=== PATIENT | female | born 1990 | race Caucasian/White ===

== ENCOUNTER 2022-12-12 05:40 | Inpatient (IN) ==
--- NOTE | 2022-12-03 08:33 | Anesthesiology Consultation ---
Date of Service December 03, 2022 Assessment & Plan (1) Encounter for pre-operative examination: Chart Review Chart Review: data entry processor initiated -COVID screening: Per PAT nursing assessment on 12/02/22. No known COVID-19 posi tive contacts or current COVID-19 related symptoms. Travel screen negative. Patient vaccinated for Covid. At surgeon discretion if preop Covid testing being done. 03/15/15= Done under SAB at L3-4 with 1 attempt. Tolerated well. Per anesthesia progress note 03/15/15 - no major issues. "The patient did well, but is now having some pain over her abdomen as the spinal is wearing off. She is getting IV Toradol and Demerol." History Surgery Operation Date: 12/12/22 07:30 Proposed Procedures p Section (Delivery of Baby Through Abdominal Incision) - Chris Mooney MD s with Bilateral Tubal Ligation - Chris Mooney MD Height/Weight Height: 4 ft 10 in Weight: 68.039 kg Allergies Allergy/AdvReac Type Severity Reaction Status Date / Time bacitracin Allergy Intermediate RASH Verified 12/02/22 16:04 neomycin Allergy Intermediate RASH Verified 12/02/22 16:04 polymyxin B Allergy Intermediate RASH Verified 12/02/22 16:04 Medications Home Medications Medication Instructions Recorded Confirmed Last Taken prenat.vits,shayla,bqm-qjqo-oxkyi 1 tab PO QPM 05/09/22 12/02/22 Unknown famotidine 20 mg tablet (Pepcid) 20 mg PO BID 12/02/22 12/02/22 Unknown iron 1 tab PO QPM 12/02/22 12/02/22 Unknown Past Medical History Medical History Acid reflux History of anesthesia reaction "epidural did not work" -- 2014 [facility]. History of chicken pox IBS (irritable bowel syndrome) TMJ (temporomandibular joint disorder) Past Family History Family History Father Pancreatic cancer Diabetes Hypertension Mother Diabetes Osteoporosis Other No family history of adverse response to anesthesia Denies family history of Ovarian cancer Breast cancer Colorectal cancer Past Surgical History Surgical History S/P section x2 S/P wisdom tooth extraction Social History Smoking Status: Never smoker Do You Dip or Chew Tobacco: No Hx Alcohol Use: No Hx Substance Use: No substance use type: does not use
[~2022-12-12 05:40] MED LIST: SODIUM CHLORIDE 0.9% 250 ML IV PRN
[2022-12-12] MEDS ORDERED: LACTATED RINGER'S 1,000 ML IV SCH ×2 (05:45→09:15)
[2022-12-12] MEDS ORDERED: CITRIC ACID/SODIUM CITRATE 15 ML UDC PO SCH (06:00)
[2022-12-12] MEDS ORDERED: ceFAZolin 2000MG 2,000 MG/15 ML SYR IV SCH (06:00)
[2022-12-12 06:15] LABS: Basophils # (auto) 0.04 K/uL (0-0.2); Basophils % (auto) 0.4 %; Eosinophils # (auto) 0.02 K/uL (0-0.50); Eosinophils % (auto) 0.2 %; Hematocrit (blood only) 35.6 % (37.0-47.0); Hemoglobin 11.8 g/dl (12.0-16.0); Immature Granulocytes # (auto) 0.06 K/uL (0.01-0.20); Immature Granulocytes % (auto) 0.7 %; Lymphocytes # (auto) 2.52 K/uL (1.2-3.4); Lymphocytes % (auto) 27.5 %; Mean Corpuscular Hemoglobin 29.6 pg (25.0-34.0); Mean Corpuscular Hgb Conc 33.1 g/dL (32.0-36.0); Mean Corpuscular Volume 89.2 fL (80.0-100.0); Mean Platelet Volume 11.6 fL (9.4-12.4); Monocytes # (auto) 0.43 K/uL (0.11-0.59); Monocytes % (auto) 4.7 %; Neutrophils # (auto) 6.09 K/uL (1.40-6.50); Neutrophils % (auto) 66.5 %; Platelet Count 183 K/uL (130-400); RDW Coefficient of Variation 14.4 % (11.5-14.5); Red Blood Count 3.99 M/uL (4.20-5.40); White Blood Count 9.16 K/ul (4.8-10.8)
[2022-12-12] MEDS ORDERED: OXYTOCIN 10 UNITS/ML 10ML VIAL ONE (06:44)
[2022-12-12] MEDS ORDERED: MoRPHine SULFATE PF 1 MG/ML 10 ML AMP/VIAL ONE (06:45)
[2022-12-12] MEDS ORDERED: fentaNYL citrate PF 100 MCG/2 ML VIAL ONE ×4 (06:45→08:17)
[2022-12-12] MEDS ORDERED: diphenhydrAMINE 50 MG/ML VIAL IV PRN (07:05)
[2022-12-12] MEDS ORDERED: LACTATED RINGER'S 500 ML IV PRN (07:05)
[2022-12-12] MEDS ORDERED: MoRPHine SULFATE PF 1 MG/ML 10 ML AMP/VIAL INT SPINAL ONE (07:05)
[2022-12-12] MEDS ORDERED: NALBUPHINE HCL INJ 10 MG/ML AMP IV PRN (07:05)
[2022-12-12] MEDS ORDERED: NALOXONE HCL 0.4 MG/1 ML VIAL/CARP IV PRN (07:05)
[2022-12-12] MEDS ORDERED: NALOXONE HCL 0.08 MG in SYRINGE 1.8 ML IV PRN (07:05)
[2022-12-12] MEDS ORDERED: ePHEDrine sulfate 50 MG/ML AMP IV PRN (07:05)
[2022-12-12] MEDS ORDERED: NALOXONE HCL 1 MG in SODIUM CHLORIDE 0.9% 1000ML 1,000 ML IV PRN (07:05)
[2022-12-12] MEDS ORDERED: ONDANSETRON INJ 2 MG/ML 2 ML VIAL IV PRN (07:05)
[2022-12-12] MEDS ORDERED: SODIUM CHLORIDE 0.9% 1000ML 1,000 ML IV SCH (07:15)
[2022-12-12] MEDS ORDERED: DC INTRASPINAL MORPHINE SCH (07:15)
[2022-12-12] MEDS ORDERED: NO NARCOTICS OR SEDATIVES SCH (07:15)
--- NOTE | 2022-12-12 07:21 | History & Physical Report ---
Date of Service December 12, 2022 Assessment & Plan (1) Previous delivery affecting , antepartum: Plan: 32yo presents for scheduled repeat with history of x2. 1. Fetus: Cat 1 2. Delivery: Repeat LTCS x 2. Consents signed 3. Vitals: WNL Admission and Anticipated Discharge Date Admission Date: December 12, 2022 History of Present Illness Primary Care Provider: Ubaldo Montez 32yo presents for scheduled repeat with history of x2. complications: Previous x2 *desires repeat c/s and tubal C/S SCHEDULED FOR 12/12/[address] MERINO AND DR. ESQUIVEL ASSIST C/S WITH TUBAL RESCHEDULED TO 12/12/[address] POTTER AND DR. ESQUIVEL ASSIST Flu shot given 05/14/22 - AL Small Cystic Structure inferior to Kidney *MFM consult (08/28/22 @ [facility] – [place]MRI done, not seen. - Recommend follow up US at 34 weeks-->not seen. aga growth OB Labs: Blood Type O Positive 05/14/22 Antibody Screen NEGATIVE 05/14/22 Hemoglobin 12.1 g/dl (12.0-16.0) 09/29/22 Hematocrit 35.3 % (37.0-47.0) L 09/29/22 Mean Corpuscular Volume 88.3 fL (80.0-100.0) 05/14/22 Platelet Count 239 K/uL (130-400) 05/14/22 Rubella IgG Antibody Immune (Immune) 05/14/22 Rapid Plasma Reagin Nonreactive (Nonreactive) 05/14/22 Hepatitis B Surface Antigen. NON-REACTIVE (NON-REACTIVE) 05/14/22 Hepatitis C Antibody (EIA) NON-REACTIVE (NON-REACTIVE) 05/14/22 HIV (1&2) Ag and Ab Confirmation NON-REACTIVE (NON-REACTIVE) 05/14/22 Glucose 1 Hour 50 gm Load 117 mg/dl (70-130) 09/29/22 Maternal Serum Alpha Fetoprotein 45.8 ng/mL 07/09/22 OB Optional Labs: Chlamydia trachomatis RNA Not Detected (NotDetected) 05/14/22 Neisseria gonorrhoeae RNA Not Detected (NotDetected) 05/14/22 Alpha Fetoprotein Triple Screen SEE NOTE 07/09/22 Labs Reviewed: cf/sma-negative--mln cfdna-low risk--mln neg afp - sln Allergies Allergy/AdvReac Type Severity Reaction Status Date / Time bacitracin Allergy Intermediate RASH Verified 12/11/22 16:36 neomycin Allergy Intermediate RASH Verified 12/11/22 16:36 polymyxin B Allergy Intermediate RASH Verified 12/11/22 16:36 Home Medications Medication Instructions Recorded Confirmed Type prenat.vits,shayla,tno-lzia-nqwan 1 tab PO QPM 05/09/22 12/11/22 History famotidine 20 mg tablet (Pepcid) 20 mg PO BID 12/02/22 12/11/22 History iron 1 tab PO QPM 12/02/22 12/11/22 History Patient History Medical History Acid reflux History of anesthesia reaction "epidural did not work" -- 2014 [facility]. History of chicken pox IBS (irritable bowel syndrome) TMJ (temporomandibular joint disorder) Surgical History S/P section x2 S/P wisdom tooth extraction Family History Father Pancreatic cancer Diabetes Hypertension Mother Diabetes Osteoporosis Other No family history of adverse response to anesthesia Denies family history of Ovarian cancer Breast cancer Colorectal cancer Social History Smoking Status: Never smoker Second Hand Exposure: No; Do You Dip or Chew Tobacco: No; Tobacco Cessation Education Requested by Patient: No Hx Alcohol Use: No Hx Substance Use: No Preferred Language: Maori Communication Ability: Effective Coin Machine Collector Required: No Beliefs That Will Affect Care: None marital status: marital status details: James Rojelio (33) [phone] Current Living Situation: Spouse and Family Current Living Situation Comment: lives with spouse, 2 children, cats- spouse/son changing litter current occupational status: employed current occupation: student teaching Other Information That Helps Us Care for You: No Feels Safe at Home: Yes Safety Concerns: Feels Safe At This Time Assistive Devices: Contacts Physical Exam Respiratory: normal respiratory effort; no respiratory distress, no labored breathing and no retractions Cardiovascular: Rate/Rhythm: regular rate and regular rhythm Gastrointestinal (Abdomen): Inspection/Auscultation: abdomen normal to inspection; abdomen not distended Genitourinary: OB Exam Monitor Tracing: + external FHT monitor used, + category I and + normal FHT variability; no early decelerations present, no late decelerations present and no variable decelerations Results & Data Vital Signs (Past 12 Hours) Vital Signs Temp Pulse Resp BP 12/12/22 07:00 20 12/12/22 07:00 37.1 C 20 12/12/22 07:02 85 125/81 12/12/22 06:00 87 123/72 Coding Level of Care Code None Diagnoses Previous delivery affecting , antepartum O34.219
[2022-12-12] MEDS ORDERED: PHENYLEPHRINE 100MCG/ML 5ML SYR ONE (07:48)
[2022-12-12] MEDS ORDERED: KETAMINE 50 MG/5 ML SYRINGE ONE (08:03)
--- NOTE | 2022-12-12 08:50 | Post Operative Brief Note ---
PG Immediate Post Op with CF Date of Surgery December 12, 2022 Pre & Post Diagnosis Operation Date: 12/12/22 07:30 Pre-Op Diagnosis: Term Repeat Post-Op Diagnosis: same I identified the patient and participated in the time-out.: Yes Procedure Operation Date: 12/12/22 07:30 Actual Procedures p Section in LD for live female infant at 0800 - Chris Mooney MD Surgeon Chris Mooney MD Commercial Litigation Associate None Estimated Blood Loss 500 Findings Consistent with Post-Op Diagnosis Specimens Specimen Description: placenta-hold cord blood Drains Queen Catheter OB Procedure charges OB Charges [id number] [id number] Add on Tubal for C/S
[2022-12-12] MEDS ORDERED: BENZOCAINE 20% AER SPR 82.5 GM CAN EXT PRN (09:01)
[2022-12-12] MEDS ORDERED: DIPHTHERIA/TETANUS/PERTUSSIS 0.5mL SYR/VIAL (Age 7+yrs) IM ONE (09:01)
[2022-12-12] MEDS: KETOROLAC 30 MG/ML VIAL IV PRN ×3 (09:01→23:13)
[2022-12-12] MEDS ORDERED: HYDROCORTISONE ACETATE 25 MG SUPP PR PRN (09:01)
[2022-12-12] MEDS ORDERED: SENNA 8.6 MG TAB PO PRN (09:01)
[2022-12-12] MEDS ORDERED: MAGNESIUM HYDROXIDE SUSP 30 ML UDC PO PRN (09:01)
[2022-12-12] MEDS ORDERED: IBUPROFEN 600 MG TAB PO PRN (09:01)
[2022-12-12] MEDS: OXYTOCIN 20 UNITS in LACTATED RINGER'S 1,000 ML IV SCH ×2 (10:32→19:16)
[2022-12-12] MEDS: HYDROmorphone INJ 0.5 MG/0.5 ML SYR IV PRN ×2 (10:39→18:40)
--- NOTE | 2022-12-12 10:49 | Anesthesiology Progress Note ---
Date of Service December 12, 2022 Anesthesia Post Procedure Vital Signs Vital Signs: Temp Pulse Resp BP Pulse Ox 12/12/22 09:00 36.7 C 20 12/12/22 10:44 76 132/66 97 12/12/22 10:39 76 97 12/12/22 10:34 97 12/12/22 10:34 75 12/12/22 10:34 73 129/62 12/12/22 10:29 78 98 12/12/22 10:24 97 12/12/22 10:24 76 12/12/22 10:24 75 138/66 12/12/22 10:19 76 96 12/12/22 10:14 89 147/65 H 97 12/12/22 10:09 75 96 12/12/22 10:04 73 154/79 H 96 12/12/22 09:59 82 97 12/12/22 09:54 96 12/12/22 09:54 82 12/12/22 09:54 74 140/65 12/12/22 09:51 77 148/72 H 12/12/22 09:49 81 95 12/12/22 09:44 94 H 97 12/12/22 09:39 78 98 12/12/22 09:34 79 150/78 H 98 12/12/22 09:29 84 97 12/12/22 09:24 81 146/78 H 97 12/12/22 09:19 79 98 12/12/22 09:14 97 12/12/22 09:14 84 12/12/22 09:14 78 142/87 H 12/12/22 09:09 94 H 99 12/12/22 09:06 72 128/61 12/12/22 09:04 84 98 12/12/22 08:59 84 99 12/12/22 08:54 97 12/12/22 08:54 84 12/12/22 08:54 83 144/78 H 12/12/22 07:00 20 12/12/22 07:00 37.1 C 20 12/12/22 07:02 85 125/81 12/12/22 06:00 87 123/72 Pain Intensity Bilateral Abdomen: Pain Intensity: 0 Transfer of Care Handoff Completed per policy Notes Mental Status: alert / awake / arousable and participated in evaluation Patient Amnestic to Procedure: Yes Nausea / Vomiting: adequately controlled Pain: adequately controlled Airway Patency, RR, SpO2: stable & adequate BP & HR: stable & adequate Hydration State: stable & adequate Anesthetic Complications: no major complications apparent and Pt Satisfied with anesthetic care
[2022-12-12] MEDS: SIMETHICONE 80 MG CHEW PO SCH ×3 (14:16→21:08)
--- NOTE | 2022-12-12 14:55 | Operative Report (OR) ---
DATE OF SERVICE: 12/12/2022 PROCEDURE: Repeat low transverse section with bilateral tubal ligation. SURGEON: Chris Mooney MD. STUDIO COUCH FRAME BUILDER: Wood Posey MD. PREOPERATIVE DIAGNOSES: 1. Term at 39 weeks 0 days gestational age. 2. History of prior section x2. POSTOPERATIVE DIAGNOSES: 1. Term at 39 weeks 0 days gestational age. 2. History of prior section x2. 3. Status post procedure. ESTIMATED BLOOD LOSS: 500 mL DRAINS: Queen catheter. FLUIDS: Continuous lactated Ringer. URINE OUTPUT: Per Queen catheter. COMPLICATIONS: None. FINDINGS: Viable with weight and Apgars pending. Normal-appearing uterus, ovaries and fallo pian tubes. Fallopian tubes removed via complete salpingectomy. DESCRIPTION OF PROCEDURE: The patient was taken to the operating room after consents were ensured. Upon presentation, she was properly identified. Spinal anesthesia was obtained without difficulty. The patient was then prepped and draped in normal sterile fashion. Preprocedural timeout was perform ed. A Pfannenstiel incision was then made with a knife at the prior location. This was ca rried down to underlying fascia with the Bovie. The fascia was nicked at the midline with a knife an d extended laterally with pickups and Dobson scissors. The superior aspect of the fascia was grasped w ith Kochers x2, elevated off the underlying rectus muscles with blunt dissection and Dobson scissors. Inferior aspect of the fascia was grasped with Kochers x2, elevated off the underlying rectus muscles using blunt dissection. The midline was then entered bluntly, placed on stretch to provide adequate room for delivery. The bladder blade was inserted. Bladder flap was created per standard fashion. A low transverse uterine incision was then made with a knife. The uterine cavity and amniotic cavity entered bluntly, placed on stretch to provide adequate room for delivery. Head of the deliv ered through the hysterotomy without difficulty, body and shoulders quickly followed. was no haseeb to be vigorous soon after delivery and a 30-second delayed cord clamping was initiated. Cord was then double clamped and cut. taken to the waiting nursery staff. Cord blood was obtained. Attention was then turned to delivery of the placenta, which was delivered intact, 3-vessel cord, wi th gentle cord traction and uterine massage. The uterus was then exteriorized, wrapped in a wet lap and several passes were made, removing any remaining membranes with a dry lap. The hysterotomy was t hen reapproximated with 0 Vicryl continuous running locked stitch. The tubal ligation was then perfo rmed with complete salpingectomy using the handheld LigaSure device. Hemostasis was noted at the com pletion of the tubal ligation. The hysterotomy was then reinspected and noted to have mild bleeding, which was then cauterized and p ressure was applied and hemostasis was noted. The uterus was then returned to the maternal abdomen a nd Letty was placed over all vascular pedicles and raw edges of the bladder flap due to some continu ed mild oozing. The hemostasis was then noted. The muscles, subcutaneous and fascial layers were in spected to be hemostatic. The fascia was reapproximated with 0 Vicryl in continuous running stitch s tarting at each lateral apices and continued to the midline. The subcutaneous layers were reapproxim ated with 2-0 plain and continuous running stitch in 2 layers. The skin was reapproximated with 3-0 V icryl with a subcuticular stitch. Needle, sponge, and instrument counts were correct at the completi on of the case. Both mother and stable in the immediate post-delivery period. Job ID: [id number]
[2022-12-12] MEDS: DOCUSATE SODIUM 100 MG CAP PO SCH (21:08)
[2022-12-12] MEDS ORDERED: CALCIUM CARBONATE 500 MG CHEWABLE TAB PO PRN (23:03)
[2022-12-12] MEDS ORDERED: CALCIUM CARBONATE 500 MG CHEWABLE TAB ONE (23:11)
[2022-12-13] MEDS: HYDROmorphone INJ 0.5 MG/0.5 ML SYR IV PRN (00:47)
[2022-12-13] MEDS ORDERED: ONDANSETRON INJ 2 MG/ML 2 ML VIAL IV PRN (01:06)
[2022-12-13] MEDS ORDERED: PROMETHAZINE HCL 25 MG in SODIUM CHLORIDE 0.9% 50 ML IV PRN (01:06)
[2022-12-13] MEDS ORDERED: diphenhydrAMINE Capsule 25 MG CAP PO PRN (01:06)
[2022-12-13] MEDS ORDERED: diphenhydrAMINE 50 MG/ML VIAL IV PRN (01:06)
[2022-12-13] MEDS: KETOROLAC 30 MG/ML VIAL IV PRN ×2 (06:30→15:39)
--- NOTE | 2022-12-13 06:53 | Obstetrical Progress Note ---
Date of Service <Erik RiveraDO - Last Filed: 12/13/22 07:54> December 13, 2022 Assessment & Plan <Erik RiveraDO - Last Filed: 12/13/22 07:54> (1) S/P section: - Feels well today. N/V with clear liquids, about to urinate but has not had a BM or passed gas, ambulating well. - Pain well controlled with pain meds. - Routine care -- OOB, ambulation, diet progression as tolerated - After discharge will have 6 week follow-up with Dr. Mooney. (2) Previous delivery affecting , antepartum: - as above (3) Acid reflux: - Will add on home Pepcid 20mg BID. Day #:: 1 <Chris Mooney MD - Last Filed: 12/13/22 08:20> (1) S/P section: (2) Previous delivery affecting , antepartum: (3) Acid reflux: Plan Patient seen with resident and agree with the above findings and plan. patient is reported Nausea without vomiting overnight. Also reporting pain in left upper abdomen and shoulder. Abdomen mildly distended. recommended light p.o. intake until she starts passing gas. Recommended frequent ambulation. Zofran ordered p.r.n. Subjective <Erik PenaDona GenetDO mamta - Last Filed: 12/13/22 07:54> Ambulation: ambulating normally Voiding: no voiding problems Passing Gas:: No Diet Tolerance:: nausea/vomiting Lochia:: Small Feeding Type:: breast feeding Current Pain Level(1-10): 7 Had some N/V with clear liquids Review of Systems Denies fever, chills, sweats Denies shortness of breath, difficulty breathing, chest pain, palpitations, chest pressure. Denies breast pain. Denies dysuria. Denies headache or changes in vision. Physical Exam <Erik PenaDona GenetDO mamta - Last Filed: 12/13/22 07:54> General: Alert, oriented. No acute distress. Cardiac: Regular rate and rhythm, no murmurs/rubs/gallops. Respiratory: Clear to auscultation bilaterally a/p, no wheezes/rales/rhonchi. No increased work of breathing. Symmetrical chest rise. No respiratory distress. Abdomen: Soft, nontender, nondistended. Bowel sounds present. Uterus: Uterine fundus firm, palpable 1 cm below umbilicus. surgical wound healing well Lower Extremities: No lower extremity edema or swelling. No deep calf pain. Shelley's negative bilaterally. <Chris Mooney MD - Last Filed: 12/13/22 08:20> General: Alert, oriented. No acute distress. Cardiac: Regular rate and rhythm, no murmurs/rubs/gallops. Respiratory: Clear to auscultation bilaterally a/p, no wheezes/rales/rhonchi. No increased work of breathing. Symmetrical chest rise. No respiratory distress. Abdomen: Soft, nontender, mildly distended. Bowel sounds present. Uterus: Uterine fundus firm, palpable 1 cm below umbilicus. surgical wound healing well Lower Extremities: No lower extremity edema or swelling. No deep calf pain. Shelley's negative bilaterally. Results & Data <Erik Rivera DO - Last Filed: 12/13/22 07:54> Vital Signs (Past 12 Hours) Vital Signs Temp Pulse Resp BP Pulse Ox O2 Del Method 12/13/22 03:15 36.9 C 76 18 123/79 12/12/22 23:00 18 96 12/12/22 23:15 36.4 C L 82 18 127/72 12/12/22 22:01 18 94 12/12/22 21:00 18 95 12/12/22 20:00 18 96 12/12/22 19:40 36.6 C 69 18 130/82 96 Room Air 12/12/22 19:00 95 H Resident Activity Tracking <Erik Rivera DO - Last Filed: 12/13/22 07:54> Resident Involvement: Resident Care Provided Care Provided: OB Delivery
[2022-12-13 07:58] LABS: Basophils # (auto) 0.02 K/uL (0-0.2); Basophils % (auto) 0.2 %; Eosinophils # (auto) 0.01 K/uL (0-0.50); Eosinophils % (auto) 0.1 %; Hematocrit (blood only) 30.9 % (37.0-47.0); Hemoglobin 10.1 g/dl (12.0-16.0); Immature Granulocytes # (auto) 0.06 K/uL (0.01-0.20); Immature Granulocytes % (auto) 0.6 %; Lymphocytes # (auto) 1.48 K/uL (1.2-3.4); Lymphocytes % (auto) 15.6 %; Mean Corpuscular Hemoglobin 29.4 pg (25.0-34.0); Mean Corpuscular Hgb Conc 32.7 g/dL (32.0-36.0); Mean Corpuscular Volume 90.1 fL (80.0-100.0); Mean Platelet Volume 12.2 fL (9.4-12.4); Monocytes # (auto) 0.34 K/uL (0.11-0.59); Monocytes % (auto) 3.6 %; Neutrophils # (auto) 7.59 K/uL (1.40-6.50); Neutrophils % (auto) 79.9 %; Platelet Count 151 K/uL (130-400); RDW Coefficient of Variation 14.4 % (11.5-14.5); RDW Standard Deviation 46.3 fL (36.4-46.3); Red Blood Count 3.43 M/uL (4.20-5.40)
[2022-12-13] MEDS: FAMOTIDINE 20 MG TAB PO SCH ×2 (08:23→21:11)
[2022-12-13] MEDS: SIMETHICONE 80 MG CHEW PO SCH ×4 (08:24→21:08)
[2022-12-13] MEDS: PRENATAL VITAMIN 1 TAB PO SCH (11:18)
[2022-12-13] MEDS: FERROUS SULFATE 325 MG TAB PO SCH (11:18)
[2022-12-13] MEDS: DOCUSATE SODIUM 100 MG CAP PO SCH ×2 (11:18→21:08)
[2022-12-13] MEDS ORDERED: bisacodyL 5 MG TABEC PO SCH (20:00)
[2022-12-13] MEDS: oxyCODONE/ACETAMINOPHEN 5mg/325mg TAB PO PRN (21:41)
[2022-12-14] MEDS: oxyCODONE/ACETAMINOPHEN 5mg/325mg TAB PO PRN ×3 (01:44→10:28)
[2022-12-14 06:47] LABS: Hemoglobin 9.2 g/dl (12.0-16.0)
[2022-12-14] MEDS: FERROUS SULFATE 325 MG TAB PO SCH (08:22)
[2022-12-14] MEDS: DOCUSATE SODIUM 100 MG CAP PO SCH (08:22)
[2022-12-14] MEDS: SIMETHICONE 80 MG CHEW PO SCH (08:23)
[2022-12-14] MEDS: PRENATAL VITAMIN 1 TAB PO SCH (08:23)
[2022-12-14] MEDS ORDERED: bisacodyL 10 MG SUPP PR PRN (09:02)
[2022-12-14] MEDS: FAMOTIDINE 20 MG TAB PO SCH (09:37)
--- NOTE | 2022-12-14 10:09 | Obstetrical Progress Note ---
Date of Service December 14, 2022 Assessment & Plan (1) Encounter for care after hospital delivery: Plan doing well, desires dc home, instructions reviewed. f/u 6 wk pp check. needs breast pump script. checked on papdmp, no issues identified. Day #:: 2 Subjective Ambulation: ambulating normally Voiding: no voiding problems Diet Tolerance:: regular diet Lochia:: Small Feeding Type:: breast feeding good pain control, wants to go home. Constitutional: + as per Subjective / HPI Physical Exam Constitutional WD/WN, vitals as above Respiratory normal respiratory effort, lungs clear to auscultation Cardiovascular Rate/Rhythm: regular rate and regular rhythm Gastrointestinal (Abdomen) Inspection/Auscultation: abdomen normal to inspection and + abdominal surgical incision (c/d/i with dermabond) Percussion/Palpation: abdomen soft fundus firm 2 cm below umbilicus Musculoskeletal nt calves no edema Neurologic grossly normal Psychiatric A+Ox3, euthymic affect Results & Data Vital Signs (Past 12 Hours) Vital Signs Temp Pulse Resp BP Pulse Ox O2 Del Method 12/14/22 08:48 98.4 F 91 H 18 125/69 95 12/14/22 07:45 98.4 F 91 H 18 125/69 Room Air 12/14/22 00:19 99.1 F 94 H 20 116/70 95 Room Air
== END 2022-12-14 12:15 | disposition home or self-care (01) | DRG 785 ==
LOC: 4S1 05:40 → 4E2 11:09 → EDSTATUS 14:00